=== PATIENT | male | born 1935 | race Caucasian/White ===

== ENCOUNTER 2017-09-07 10:28 | Inpatient (IN) | payer OTHER ==
[~2017-09-07] VITALS: Ht 182.9 cm; Wt 134.0 kg
[2017-09-07 11:06] LABS: Basophils # (auto) 0 uL; Basophils % (auto) 0.5 % (0.0-2.0); Eosinophils # (auto) 0 uL; Eosinophils % (auto) 0.6 % (0.0-7.0); Hematocrit 37.3 % (41.0-53.0); Hemoglobin 12.5 g/dL (13.5-17.5); Lymphocytes % (auto) 12.4 % (10.0-50.0); Mean Corpuscular Hemoglobin 33.5 pg (28.0-32.0); Mean Corpuscular Hgb Conc. 33.5 g/dL (32.0-36.0); Mean Corpuscular Volume 100.1 fL (80.0-100.0); Monocytes # (auto) 0.7 uL; Monocytes % (auto) 9.1 % (0.0-12.0); Neutrophils # (auto) 6.2 uL; Neutrophils % (auto) 77.4 % (37.0-80.0); Platelet Count (auto) 126 10^3/uL (140-450); Red Blood Cells 3.73 10^6/uL (4.5-5.90); Red Cell Distribution Width 15.8 % (11.8-14.3)
[2017-09-07 11:30] LABS: Alanine Aminotransferase 18 U/L (16-61); Albumin 3.5 g/dL (3.4-5.0); Alkaline Phosphatase 128 U/L (45-117); Anion Gap 9 (5-15); Aspartate Aminotransferase 24 U/L (15-37); BUN/Creatinine Ratio 21.7; Bilirubin, Total 0.5 mg/dL (0.2-1.0); Blood Urea Nitrogen 30 mg/dL (7-18); Calcium 8.6 mg/dL (8.5-10.1); Carbon Dioxide 25 mmol/L (21-32); Chloride 104 mmol/L (98-107); GFR African American 63 mL/min; GFR Non-African American 52 mL/min; Glucose 108 mg/dL (74-106); Potassium 4.1 mmol/L (3.5-5.1); Sodium 138 mmol/L (136-145); Total Protein 6.8 g/dL (6.4-8.2)
[2017-09-07] MEDS ORDERED: ACETAMINOPHEN 500 MG TAB PO PRN (14:00)
[2017-09-07] MEDS ORDERED: MORPHINE SULFATE 4 MG/ML SYR/VIAL IV PRN (14:00)
[2017-09-07] MEDS ORDERED: cefTRIAXone 1GM/10ml IVPUSH 10 ML IV ONE (14:00)
[2017-09-07] MEDS ORDERED: LORazepam 0.5 MG TAB PO PRN (14:00)
[2017-09-07] MEDS ORDERED: HYDROcodone-ACET 5/325MG TAB PO PRN (14:00)
[2017-09-07] MEDS ORDERED: PROMETHAZINE HCL 25 MG/ML 1ML IV PRN (14:00)
[2017-09-07] MEDS ORDERED: NITROGLYCERIN 0.4 MG SL TAB SL PRN (14:00)
[2017-09-07] MEDS ORDERED: TEMAZEPAM 15 MG CAP PO PRN (14:00)
[2017-09-07] MEDS ORDERED: DEXTROSE (50%) 50ML SYRG IV PRN (14:00)
[2017-09-07] MEDS ORDERED: LABETALOL HCL 5 MG/ML ML 20ML VIAL IV PRN (14:00)
[2017-09-07] MEDS ORDERED: LACTULOSE 20Gm/30ML SOLN PO PRN (14:00)
[2017-09-07] MEDS ORDERED: ENOXAPARIN SOD 40 MG/0.4 ML SYRINGE SC SCH (14:30)
[2017-09-07] MEDS ORDERED: ASPirin 81 mg TAB PO ONE (14:30)
[2017-09-07] MEDS: SODIUM CHLORIDE 0.9% 1,000 ML IV SCH (15:00)
[2017-09-07 16:15] LABS: Folate (Folic Acid) 15.51 ng/mL (5.38-24)
[2017-09-07] MEDS: ACCU-CHEK COMFORT CURVE STRIP VI SCH ×2 (16:43→22:00)
[2017-09-07] MEDS: InsuLIN REG 1unit/0.01ml Soln (100units/ml) SC SCH ×2 (16:44→22:00)
[2017-09-07] MEDS ORDERED: ENOXAPARIN SOD 100 MG/1 ML SYRINGE SC ONE (17:00)
[2017-09-07] MEDS ORDERED: ENOXAPARIN SOD 60 MG/0.6 ML SYRINGE SC ONE (17:30)
[2017-09-07 18:09] LABS: Urine Bacteria NONE SEEN /hpf (None Seen); Urine Blood 1+ /uL (Negative); Urine Specific Gravity 1.017 (1.001-1.035); Urine WBC 4 /hpf (0 - 3)
[2017-09-07 19:15] LABS: INR 1.17 (0.9-1.15); Prothrombin Time 12.8 sec (9.37-12.3)
[2017-09-07 20:40] VITALS: BP 146/58
[2017-09-07] MEDS ORDERED: ATORVASTATIN 20 MG TAB PO SCH (22:00)
[2017-09-07 22:03] VITALS: BP 146/58
[2017-09-08] MEDS: SODIUM CHLORIDE 0.9% 1,000 ML IV SCH (02:19)
[2017-09-08] MEDS: MORPHINE SULFATE 4 MG/ML SYR/VIAL IV PRN ×2 (03:33→09:56)
[2017-09-08 04:55] VITALS: BP 133/55
[2017-09-08] MEDS: ACCU-CHEK COMFORT CURVE STRIP VI SCH ×2 (06:44→12:38)
[2017-09-08] MEDS: InsuLIN REG 1unit/0.01ml Soln (100units/ml) SC SCH ×2 (06:45→12:39)
[2017-09-08 06:58] LABS: Basophils # (auto) 0.1 uL; Basophils % (auto) 0.7 % (0.0-2.0); Eosinophils # (auto) 0.2 uL; Eosinophils % (auto) 1.8 % (0.0-7.0); Hematocrit 33.6 % (41.0-53.0); Hemoglobin 11.5 g/dL (13.5-17.5); Lymphocytes # (auto) 1.6 uL; Lymphocytes % (auto) 18.1 % (10.0-50.0); Mean Corpuscular Hgb Conc. 34.2 g/dL (32.0-36.0); Mean Corpuscular Volume 99.4 fL (80.0-100.0); Monocytes # (auto) 0.7 uL; Monocytes % (auto) 7.8 % (0.0-12.0); Neutrophils # (auto) 6.3 uL; Neutrophils % (auto) 71.6 % (37.0-80.0); Nucleated Red Blood Cells % 0.1 %; Platelet Count (auto) 126 10^3/uL (140-450); Red Blood Cells 3.39 10^6/uL (4.5-5.90); Red Cell Distribution Width 15.8 % (11.8-14.3); White Blood Cell 8.8 10^3/uL (4.4-10.8)
[2017-09-08 07:21] LABS: Albumin 3.2 g/dL (3.4-5.0); BUN/Creatinine Ratio 17.5; Bilirubin, Total 0.6 mg/dL (0.2-1.0); Calcium 8.4 mg/dL (8.5-10.1); Potassium 4.7 mmol/L (3.5-5.1); Total Protein 6.3 g/dL (6.4-8.2)
[2017-09-08] MEDS ORDERED: BICA50TA7 PO (07:56)
[2017-09-08] MEDS ORDERED: FURO40TA4 PO (07:57)
[2017-09-08] MEDS ORDERED: ALLO300T2 PO (08:00)
[2017-09-08] MEDS ORDERED: METH750T3 PO (08:04)
[2017-09-08] MEDS ORDERED: DABI150C PO (08:04)
[2017-09-08] MEDS ORDERED: METO25TA5 PO (08:04)
[2017-09-08] MEDS ORDERED: LISI10TA6 PO (08:04)
[2017-09-08] MEDS ORDERED: FINA5TAB4 PO (08:06)
[2017-09-08] MEDS ORDERED: OXYC-632 PO (08:06)
[2017-09-08] MEDS ORDERED: GABA300C10 PO (08:06)
[2017-09-08] MEDS ORDERED: TERA2CAP45 PO (08:07)
[2017-09-08] MEDS ORDERED: OXYB15TA12 PO (08:09)
[2017-09-08] MEDS ORDERED: ATO40T PO (08:09)
[2017-09-08 09:00] VITALS: BP 127/58
[2017-09-08] MEDS ORDERED: cefTRIAXone 1GM/10ml IVPUSH 10 ML IV SCH (09:00)
[2017-09-08] MEDS ORDERED: ASPirin 81 mg TAB PO SCH (10:00)
[2017-09-08] MEDS ORDERED: ENOXAPARIN SOD 100 MG/1 ML SYRINGE SC SCH (10:00)
[2017-09-08] MEDS ORDERED: PANTOPRAZOLE 40 MG TAB PO SCH (10:00)
[2017-09-08] MEDS ORDERED: OXYCODONE W/ ACETAMINOPHEN 5/325MG TABLET PO PRN (12:00)
[2017-09-08] MEDS ORDERED: OXYCODONE HCL PO SCH (12:00)
[2017-09-08] MEDS ORDERED: CLINDAMYCIN 600MG IV 50 ML IV SCH (12:00)
[2017-09-08 13:00] VITALS: BP 134/57
[2017-09-08] MEDS ORDERED: BICALUTAMIDE 50 MG TAB PO SCH (14:00)
[2017-09-08] MEDS ORDERED: GABAPENTIN 300 MG CAP PO SCH (14:00)
[2017-09-08] MEDS ORDERED: METHOCARBAMOL 500 MG TAB PO SCH (14:00)
[2017-09-08] MEDS ORDERED: PATIENTS OWN MEDICATION (Methocarbamol 750 MG) PO SCH (14:00)
[2017-09-08] MEDS ORDERED: FUROSEMIDE 40 MG TAB PO SCH (18:00)
[2017-09-08] MEDS ORDERED: TERAZOSIN HCL 2 MG PO SCH (22:00)
[2017-09-08] MEDS ORDERED: DABIGATRAN ETEXILATE MESYLATE 150 MG PO SCH (22:00)
[2017-09-08] MEDS ORDERED: DABIGATRAN 75 MG CAP PO SCH (22:00)
[2017-09-08] MEDS ORDERED: ATORVASTATIN 20 MG TAB PO SCH (22:00)
[2017-09-08] MEDS ORDERED: OXYBUTYNIN CHL 5 MG TAB PO SCH (22:00)
[2017-09-08] MEDS ORDERED: TERAZOSIN HCL 1 MG CAP PO SCH (22:00)
[2017-09-08] MEDS ORDERED: OXYBUTYNIN CHLORIDE PO SCH (22:00)
[2017-09-08] MEDS ORDERED: PATIENTS OWN MEDICATION (Atorvastatin Calcium (Lipitor) 1 TAB) PO SCH (22:00)
[2017-09-08] MEDS ORDERED: METOPROLOL TARTRATE 25 MG TAB PO SCH (22:00)
[2017-09-09] MEDS ORDERED: ALLOPURINOL 300 MG TAB PO SCH (06:00)
[2017-09-09] MEDS ORDERED: LISINOPRIL 10 MG TAB PO SCH (10:00)
[2017-09-09] MEDS ORDERED: FINASTERIDE 5 MG TAB PO SCH (10:00)
== END 2017-09-08 14:41 | disposition left against medical advice (07) | DRG 64 ==
LOC: ER 10:28 → EDBD 10:28 → TELE 10:29 → TELE-CENTR 20:43
PROVIDERS: ADMIT Internal Medicine; ATTEND Internal Medicine
DX: I63.9 Cerebral infarction, unspecified (principal); G93.41 Metabolic encephalopathy; E11.69 Type 2 diabetes mellitus with other specified complication; E11.42 Type 2 diabetes mellitus with diabetic polyneuropathy; I48.91 Unspecified atrial fibrillation; L03.115 Cellulitis of right lower limb; M86.9 Osteomyelitis, unspecified; N39.0 Urinary tract infection, site not specified; S80.821A Blister (nonthermal), right lower leg, initial encounter; X58.XXXA Exposure to other specified factors, initial encounter; I70.90 Unspecified atherosclerosis; I50.9 Heart failure, unspecified; I11.0 Hypertensive heart disease with heart failure; K80.20 Calculus of gallbladder without cholecystitis without obstruction; Z85.46 Personal history of malignant neoplasm of prostate; Z79.899 Other long term (current) drug therapy; Y93.89 Activity, other specified; Y92.89 Other specified places as the place of occurrence of the external cause; Y99.8 Other external cause status
CPT/HCPCS: 36415; 70450; 71045; 74176; 80053; 80061; 81001; 82550; 82607; 82746; 82962; 83036; 83880; 84443; 84484; 85025; 85610; 85652; 87086; 93005; 95819; 96361; 96374; 99291; J1815; J3490